=== PATIENT | female | born 1960 | race Caucasian/White ===

== ENCOUNTER 2018-09-21 19:05 | Emergency (ER) | payer BC ==
[2018-09-21 19:29] VITALS: BP 145/59
[2018-09-21] MEDS ORDERED: Ondansetron ODT TAB* 4 MG PO ONE (19:44)
[2018-09-21 20:01] LABS: Influenza A Molecular NEGATIVE (Negative); Influenza B Molecular NEGATIVE (Negative)
--- NOTE | 2018-09-21 20:03 | UC ---
HPI Febrile Illness - HPI Summary HPI Summary: Pt presents with sudden onset of fever, chills, body aches beginning on . Pt states that she has been feeling fatigued, MARTIN, abdominal discomfort, and nausea. Pt sates that today she had a fever of 105 via temporal thermometer. Pt took two ibuprofen tablets and at time of triage pt's temperature is 100.3 Pt denies, ST, cough, open or scabbed sores, no rashes, no recent antibiotic use, no ear ache. - History of Current Complaint Chief Complaint: UCGeneralIllness Time Seen by Provider: 09/21/18 19:19 Hx Obtained From: Patient Onset/Duration: Started Hours Ago - on 09/16/18 Timing: Constant Initial Severity: Mild Current Severity: Severe Pain Intensity: 8 Aggravating Factors: Nothing Alleviating Factors: OTC Medicine Associated Signs and Symptoms: Chills, Headache, Myalgia - Risk Factors Pseudomonas Risk Factors: Chronic Lung Disease - asthma Serious Bacterial Infection Risk Factors: Negative - Additional Pertinent History Current Antibiotics: No - Allergy/Home Medications Allergies/Adverse Reactions: Allergies Allergy/AdvReac Type Severity Reaction Status Date / Time cats Allergy Congestion Uncoded 09/21/18 19:33 eggs Allergy Nausea Uncoded 09/21/18 19:33 environmental Allergy Eyes Uncoded 09/21/18 19:33 Itchy/Swollen/Red/Watery Home Medications: Home Medications Albuterol HFA INHALER* [Ventolin HFA Inhaler*] 2 puff INH Q4H PRN 09/21/18 [ History Confirmed 09/21/18] Booster For Bp New Med 1 dose PO DAILY 09/21/18 [History Confirmed 09/21/18] Ergocalciferol (Vitamin D2) [Vitamin D2] 50,000 unit PO WEEKLY 09/21/18 [ History Confirmed 09/21/18] Exenatide Microspheres [Bydureon Pen] 2 mg SQ WEEKLY 09/21/18 [History Confirmed 09/21/18] Fluticasone Propionate 15.8 ml NS BID 09/21/18 [History Confirmed 09/21/18] Loratadine 10 mg PO DAILY 09/21/18 [History Confirmed 09/21/18] Oxybutynin TAB* [Ditropan TAB*] 5 mg PO QPM 09/21/18 [History Confirmed 09/21/18 ] PARoxetine HCL TAB* [Paxil TAB*] 40 mg PO QPM 09/21/18 [History Confirmed ] Similasan Otc Allergy Eye Drop 2 drop BOTH EYES DAILY PRN 09/21/18 [History Confirmed 09/21/18] amLODIPine TAB* [Norvasc 5 mg TAB*] 5 mg PO DAILY 09/21/18 [History Confirmed ] busPIRone TAB* [Buspar TAB*] 10 mg PO DAILY PRN 09/21/18 [History Confirmed ] metFORMIN* [Glucophage 1000 MG TAB *] 1,000 mg PO DAILY 09/21/18 [History Confirmed 09/21/18] PMH/Surg Hx/FS Hx/Imm Hx Previously Healthy: Yes Endocrine History: Diabetes - type 2 Cardiovascular History: Hypertension - Surgical History Surgical History: Yes Surgery Procedure, Year, and Place: hysterectomy, tubal, d and c +, - Social History Occupation: Employed Full-time Lives: With Family Alcohol Use: Occasionally Substance Use Type: None Smoking Status (MU): Never Smoked Tobacco Have You Smoked in the Last Year: No Review of Systems All Other Systems Reviewed And Are Negative: Yes Constitutional: Positive: Fever, Chills, Fatigue Skin: Positive: Negative Eyes: Positive: Negative ENT: Positive: Negative Respiratory: Positive: Negative Cardiovascular: Positive: Negative Gastrointestinal: Positive: Abdominal Pain, Diarrhea - two episodes of loose stools today., Nausea Genitourinary: Positive: Frequency Motor: Positive: Negative Neurovascular: Positive: Negative Musculoskeletal: Positive: Myalgia Neurological: Positive: Headache Psychological: Positive: Negative Is Patient Immunocompromised?: No Physical Exam Triage Information Reviewed: Yes Appearance: Ill-Appearing Vital Signs: Initial Vital Signs Temp 100.3 F 09/21/18 19:20 Pulse 116 09/21/18 19:20 Resp 30 09/21/18 19:20 BP 145/59 09/21/18 19:20 Pulse Ox 97 09/21/18 19:20 Vital Signs Reviewed: Yes Eye Exam: Normal ENT Exam: Normal Dental Exam: Normal Neck exam: Normal Respiratory Exam: Normal Respiratory: Positive: Wheezing - anterior left upper lobe, faint wheeze Cardiovascular Exam: Normal Cardiovascular: Positive: Tachycardia Abdominal Exam: Normal Abdomen Description: Positive: Nontender Musculoskeletal Exam: Normal Psychological Exam: Normal Skin Exam: Normal Course/Dx - Febrile Illness Differential Diagnoses: Fever of Unknown Origin, Other: - uti - Diagnoses Provider Diagnosis: UTI (urinary tract infection), Fever and chills Discharge - Sign-Out/Discharge Documenting (check all that apply): Patient Departure All imaging exams completed and their final reports reviewed: No Studies - Discharge Plan Condition: Stable Disposition: HOME Prescriptions: Cephalexin CAP* [Keflex 500 CAP*] 500 mg PO Q8H #21 cap Patient Education Materials: Urinary Tract Infection in Women (ED), Fever in Adults (ED), Safe Use of NSAIDs (ED) Referrals: [facility] [place] [facility] REFERRAL [Outside] - If Needed No Primary Care Phys,NOPCP [Primary Care Provider] - Additional Instructions: Please follow up with your PCP as needed. If your symptoms do not improve, please seek care at the closest emergency room as soon as possible. - Billing Disposition and Condition Condition: STABLE Disposition: Home
[2018-09-21] MEDS ORDERED: Cephalexin CAP* 500 MG PO ONE (20:44)
== END 2018-09-21 20:53 | disposition home or self-care (01) ==
LOC: UCCORT 19:05
DX: N39.0 Urinary tract infection, site not specified (principal); R50.9 Fever, unspecified; E11.9 Type 2 diabetes mellitus without complications; Z79.84 Long term (current) use of oral hypoglycemic drugs; I10 Essential (primary) hypertension
CPT/HCPCS: 81003; 87077; 87086; 87186; 99202; A9270-GY; G0463